=== PATIENT | male | born 1940 | race Caucasian/White ===

== ENCOUNTER 2021-08-04 19:05 | Inpatient (IN) | payer MEDICARE ==
[~2021-08-04] VITALS: Ht 175.3 cm; Wt 92.1 kg
[2021-08-04] MEDS ORDERED: IV NORMAL SALINE 1000 ML BAG IV ONE (19:15)
[2021-08-04] MEDS ORDERED: FERR325T28 PO (19:19)
[2021-08-04] MEDS ORDERED: ALBU8.5H8 INH (19:19)
[2021-08-04] MEDS ORDERED: LIPA1CAP28 PO (19:19)
[2021-08-04] MEDS ORDERED: CHLO25TA2 PO (19:19)
[2021-08-04] MEDS ORDERED: ATOR20TA PO (19:19)
[2021-08-04] MEDS ORDERED: ALPR0.255 PO (19:19)
[2021-08-04] MEDS ORDERED: ZENPEP PO (19:19)
[2021-08-04] MEDS ORDERED: ALEN70TA80 PO (19:19)
[2021-08-04] MEDS ORDERED: FAMO-132 PO (19:19)
[2021-08-04] MEDS ORDERED: MULT-594 PO (19:19)
[2021-08-04] MEDS ORDERED: APIX5TAB PO (19:19)
[2021-08-04] MEDS ORDERED: CHOLECALCIFEROL 1,000 UNIT TABLET ONE (19:29)
--- NOTE | 2021-08-04 19:36 | NUR ---
Dr. Villafana at bedside, MSE in progress.
[2021-08-04 19:40] LABS: HEMATOCRIT 33.7 % (36.7-47.1); MEAN CORPUSCULAR HEMOGLOBIN 29.5 uug (23.8-33.4); MEAN CORPUSCULAR VOLUME 88.6 fL (73.0-96.2); PLATELET COUNT (AUTO) 151 K/uL (152-348)
[2021-08-04 19:44] LABS: CARBON DIOXIDE 30 mmol/L (21-32); CHLORIDE 98 mmol/L (98-107); CREATININE 1.1 mg/dL (0.6-1.3); GLUCOSE 200 mg/dL (74-106); POTASSIUM 4.1 mmol/L (3.5-5.1); UREA NITROGEN, BLOOD 29 mg/dL (7-18)
[2021-08-04 19:56] LABS: ALANINE AMINOTRANSFERASE 21 U/L (16-63); ALKALINE PHOSPHATASE 59 U/L (50-136); ASPARTATE AMINOTRANSFERASE 24 U/L (15-37); BILIRUBIN,DIRECT 0.4 mg/dL (0.0-0.2); BILIRUBIN,TOTAL 1.4 mg/dL (0.2-1.0); TOTAL PROTEIN, SERUM 5.7 g/dL (6.4-8.2)
[2021-08-04] MEDS: CHOLECALCIFEROL 1,000 UNIT TABLET PO SCH (19:58)
[2021-08-04] MEDS ORDERED: CEFAZOLIN 1 G in IV DEXTROSE 5% 50 ML IV ONE (20:15)
[2021-08-04] MEDS ORDERED: NITROGLYCERIN OINT 1 GM PACKET TP ONE ×2 (20:15→20:23)
[2021-08-04] MEDS ORDERED: ASPIRIN 81 MG TAB.CHEW PO ONE (20:15)
[2021-08-04] MEDS ORDERED: ASPIRIN 81 MG TAB.CHEW ONE (20:23)
[2021-08-04] MEDS ORDERED: CEFAZOLIN 1 G VIAL ONE (20:23)
--- NOTE | 2021-08-04 21:16 | NUR ---
Ultrasound at bedside.
--- NOTE | 2021-08-04 22:18 | NUR ---
Called made to [facility] for panel call.
[2021-08-04] MEDS ORDERED: ACETAMINOPHEN 325 MG TABLET PO PRN (22:30)
[2021-08-04] MEDS ORDERED: ONDANSETRON 4 MG/2 ML VIAL IV PRN (22:30)
[2021-08-04] MEDS ORDERED: INSULIN REGULAR, HUMAN 300 UNIT/3 ML VIAL SQ PRN (22:30)
[2021-08-04] MEDS ORDERED: DEXTROSE 50% 50 ML DISP.SYRIN IV PRN (22:30)
[2021-08-04] MEDS ORDERED: MORPHINE SULFATE 2 MG/1 ML DISP.SYRIN IV PRN (22:30)
--- NOTE | 2021-08-04 22:59 | NUR ---
Report given to Ivonne VU
--- NOTE | 2021-08-04 23:43 | NUR ---
pt taken to room 316 via [place] with all belongings.
[2021-08-04] MEDS ORDERED: VANCOMYCIN IV 1,500 MG in IV DEXTROSE 5% 500 ML IV ONE (23:45)
[2021-08-04] MEDS ORDERED: TEMAZEPAM 7.5 MG CAPSULE PO PRN (23:45)
[2021-08-04] MEDS ORDERED: ENOXAPARIN SODIUM 100 MG/ML DISP.SYRIN SQ ONE (23:45)
--- NOTE | 2021-08-04 23:50 | NUR ---
RECEIVED PATIENT FROM ER DX:SEPSIS ,CHF,ACS AND RIGHT LOWER LEG CELLULITIS AND REDNESS.ADMITTING MD DOCTOR JUAN LUIS. AAOX3 ,PATIENT ABLE TO ANSWER SIMPLE QUESTIONS ,HE SAID HE CALLED 911 C/O LOWER EXT,WEAKNESS ,AT HOME HE WALKS WITH WALKER AND HE LIVES ALONE .ADMISSION HISTORY OBTAINED VIA PATIENT AND VIA CHART POOR HISTORIAN AND SEEMS VERY SLEEPY.NO RESPIRATORY DISTRESS NOTED 02 O2 NASAL CANNULA AT 2 LITER /MIN . INCONTINENT OF B AND B,HAD LARGE BM SOFT BROWNISH IN COLOR ,URINATED .CHANGED SOILED LINENS AND GOWN . PHOTO TAKEN ON PATIENT DIFFERENT SKIN ISSUES , SEE CHART CONSULTED WOUND CARE .
[2021-08-05 00:44] VITALS: BP 124/66
[2021-08-05] MEDS ORDERED: VANCOMYCIN 1000 MG VIAL ONE (00:52)
[2021-08-05] MEDS ORDERED: VANCOMYCIN HCL 500 MG VIAL ONE (00:52)
[2021-08-05] MEDS: ATORVASTATIN 20 MG TABLET PO SCH ×2 (01:44→20:49)
[2021-08-05] MEDS ORDERED: ENOXAPARIN SODIUM 30 MG/0.3 ML DISP.SYRIN SUBCUT SCH (01:45)
[2021-08-05] MEDS ORDERED: ENOXAPARIN SODIUM 60 MG/0.6 ML DISP.SYRIN SQ SCH (01:45)
--- NOTE | 2021-08-05 02:00 | NUR ---
turned and reposition patient .no c/p no sob noted .elevated right lower leg with pillow right leg swollen and very red( cellulitis) right foot +2 to 3 edema .
[2021-08-05] MEDS ORDERED: REMEDY ESSENTIAL ZINC PASTE 113 GM TOP PRN (02:45)
[2021-08-05] MEDS ORDERED: PIPERACILLIN SODIUM/TAZO 3.375 GM VIAL ONE (02:58)
[2021-08-05 04:50] VITALS: BP 128/72
[2021-08-05] MEDS ORDERED: PIPERACILLIN SODIUM/TAZOBACTAM 3.375 G in IV DEXTROSE 5% 50 ML IV SCH (06:00)
--- NOTE | 2021-08-05 06:00 | NUR ---
patient belongings inventory done with wallet .patient agrees to but his wallet to the safe .
[2021-08-05 06:16] LABS: HEMATOCRIT 31.3 % (36.7-47.1); MEAN CORPUSCULAR HEMOGLOBIN 29.7 uug (23.8-33.4); MEAN CORPUSCULAR VOLUME 88.2 fL (73.0-96.2); PLATELET COUNT (AUTO) 131 K/uL (152-348)
[2021-08-05] MEDS: BLOOD SUGAR DIAGNOSTIC 1 EACH STRIP VI SCH ×5 (06:16→20:49)
[2021-08-05 06:25] LABS: BILIRUBIN,TOTAL 1.2 mg/dL (0.2-1.0); MAGNESIUM 2.2 mg/dL (1.8-2.4); PHOSPHOROUS 3.4 mg/dL (2.5-4.9); POTASSIUM 3.9 mmol/L (3.5-5.1); TOTAL PROTEIN, SERUM 5.2 g/dL (6.4-8.2)
[2021-08-05 06:35] LABS: THYROID STIMULATING HORMONE 0.39 mIU/mL (0.358-3.740)
--- NOTE | 2021-08-05 08:00 | NUR ---
Discussed plan with pt not to drink too much water secondary to pt having edema +2 on LE's. Pt agreeable with plan. Redness on RIGHT left noted. LEFT UPPER ARM IV intact and flushing well with minimal resistance. PT is in no acute distress. Call light is within Reach.
[2021-08-05] MEDS: MULTIVITAMINS,THERAPEUTIC TABLET PO SCH (08:26)
[2021-08-05] MEDS: CHOLECALCIFEROL 1,000 UNIT TABLET PO SCH (08:26)
[2021-08-05] MEDS: REMEDY ESSENTIAL ZINC PASTE 113 GM TOP SCH ×2 (08:27→20:50)
[2021-08-05] MEDS: PANTOPRAZOLE SODIUM 40 MG TABLET.DR PO SCH (08:30)
[2021-08-05] MEDS ORDERED: FUROSEMIDE 20 MG/2 ML VIAL IV SCH (09:00)
[2021-08-05] MEDS: APIXABAN 5 MG TABLET PO SCH ×2 (10:26→20:48)
[2021-08-05] MEDS ORDERED: ENOXAPARIN SODIUM 100 MG/ML DISP.SYRIN SQ SCH (11:30)
[2021-08-05 12:07] VITALS: BP 111/65
[2021-08-05] MEDS: DIPHENOXYLATE HCL/ATROP SULF TABLET PO PRN (12:56)
[2021-08-05] MEDS: PIPERACILLIN SODIUM/TAZOBACTAM 3.375 G in IV DEXTROSE 5% 50 ML IV SCH ×2 (13:03→22:51)
[2021-08-05 16:03] VITALS: BP 122/68
[2021-08-05] MEDS: VANCOMYCIN IV 1,500 MG in IV DEXTROSE 5% 500 ML IV SCH (17:35)
--- NOTE | 2021-08-05 18:00 | NUR ---
Pt is in no acute distress. DR flores saw pt. Per pharmacy no vanco trough needed and ok to give dose. Call light is within reach.
[2021-08-05 20:24] VITALS: BP 132/88
[2021-08-05] MEDS: DOCUSATE SODIUM 100 MG CAPSULE PO SCH (20:47)
[2021-08-06 00:11] VITALS: BP 132/84
[2021-08-06 04:31] VITALS: BP 144/79
[2021-08-06] MEDS: PIPERACILLIN SODIUM/TAZOBACTAM 3.375 G in IV DEXTROSE 5% 50 ML IV SCH ×2 (05:30→14:27)
[2021-08-06] MEDS: PANTOPRAZOLE SODIUM 40 MG TABLET.DR PO SCH (06:25)
[2021-08-06] MEDS: BLOOD SUGAR DIAGNOSTIC 1 EACH STRIP VI SCH (06:32)
--- NOTE | 2021-08-06 08:00 | NUR ---
Applied z guard on groin area redness. Right leg redness about the same from yesterday. Edema noted +2 on right leg meme heels floated and meme legs elevated. IV site on left hand intact and flushing with minimal resistance. Discussed with pt not to drink too much water. Pt agreeable with plan. Call light is within reach.
[2021-08-06] MEDS: CHOLECALCIFEROL 1,000 UNIT TABLET PO SCH (09:03)
[2021-08-06] MEDS: DIPHENOXYLATE HCL/ATROP SULF TABLET PO PRN (09:03)
[2021-08-06] MEDS: MULTIVITAMINS,THERAPEUTIC TABLET PO SCH (09:03)
[2021-08-06] MEDS: REMEDY ESSENTIAL ZINC PASTE 113 GM TOP SCH ×2 (09:06→20:24)
[2021-08-06] MEDS: APIXABAN 5 MG TABLET PO SCH ×2 (09:06→20:24)
[2021-08-06] MEDS: ALBUTEROL SULFATE 2.5 MG/3 ML NEBU NEB PRN ×2 (09:29→17:41)
[2021-08-06 09:34] LABS: CREATININE 1.1 mg/dL (0.6-1.3); HEMATOCRIT 35.1 % (36.7-47.1); MEAN CORPUSCULAR HEMOGLOBIN 29.9 uug (23.8-33.4); MEAN CORPUSCULAR VOLUME 88.8 fL (73.0-96.2); PLATELET COUNT (AUTO) 160 K/uL (152-348); POTASSIUM 3.5 mmol/L (3.5-5.1)
[2021-08-06 11:47] VITALS: BP 123/74
--- NOTE | 2021-08-06 12:00 | NUR ---
Pt was not able to tolerate physical therapy. Pt was able to participate partially with PT. o2 @ 2 liters with sat of 96%.
[2021-08-06] MEDS: VANCOMYCIN IV 1,500 MG in IV DEXTROSE 5% 500 ML IV SCH (12:02)
[2021-08-06] MEDS: SOD FERRIC GLUC COMPLX/SUCROSE 125 MG in IV NORMAL SALINE 100 ML IV SCH (14:27)
[2021-08-06 16:37] VITALS: BP 140/81
--- NOTE | 2021-08-06 18:39 | NUR ---
pt stated "that breathing treatment helped me alot today." Pt received x 2 hhn tx as ordered for sob effective. Dr flores here to see patient.
[2021-08-06 20:00] VITALS: BP 124/76
[2021-08-06] MEDS: DOCUSATE SODIUM 100 MG CAPSULE PO SCH (20:22)
[2021-08-06] MEDS: ATORVASTATIN 20 MG TABLET PO SCH (20:23)
[2021-08-06] MEDS ORDERED: CEFTRIAXONE 1 G in IV DEXTROSE 5% 50 ML IV SCH (21:30)
[2021-08-06] MEDS ORDERED: CEFTRIAXONE /D5W 50ML IVPB **ER PYXIS IV ONE (22:07)
[2021-08-07 00:51] VITALS: BP 135/63
[2021-08-07 04:31] VITALS: BP 147/89
--- NOTE | 2021-08-07 04:46 | NUR ---
Patient resting well in between care; no acute distress; repositioned for comfort; seen BY Lorena ALTAMIRANO and davida schmidt and ordered Rocephin; Pt tolerated Rocephin; continue to monitor; continue plan of care.
[2021-08-07] MEDS: VANCOMYCIN IV 1,500 MG in IV DEXTROSE 5% 500 ML IV SCH (05:09)
[2021-08-07 05:27] LABS: HEMATOCRIT 32.8 % (36.7-47.1); MEAN CORPUSCULAR VOLUME 87.6 fL (73.0-96.2); PLATELET COUNT (AUTO) 161 K/uL (152-348)
[2021-08-07 05:41] LABS: BILIRUBIN,TOTAL 0.9 mg/dL (0.2-1.0); CREATININE 0.9 mg/dL (0.6-1.3); MAGNESIUM 1.7 mg/dL (1.8-2.4); PHOSPHOROUS 4.1 mg/dL (2.5-4.9); POTASSIUM 3.6 mmol/L (3.5-5.1); TOTAL PROTEIN, SERUM 5.2 g/dL (6.4-8.2)
[2021-08-07] MEDS: PANTOPRAZOLE SODIUM 40 MG TABLET.DR PO SCH (06:13)
--- NOTE | 2021-08-07 07:50 | NUR ---
received sleeping easily arouses to verbal and tactile stimuli. on 2 lpm. no ss of sob or pain. redness on rle still noted. ble elevated per comfort. iv intact no ss of infiltration or phlebitis. appears comfortable. call light within reach. cont to monitor.
[2021-08-07] MEDS: MULTIVITAMINS,THERAPEUTIC TABLET PO SCH (08:31)
[2021-08-07] MEDS: REMEDY ESSENTIAL ZINC PASTE 113 GM TOP SCH (08:31)
[2021-08-07] MEDS: CHOLECALCIFEROL 1,000 UNIT TABLET PO SCH (08:31)
[2021-08-07] MEDS: DIPHENOXYLATE HCL/ATROP SULF TABLET PO PRN (08:34)
[2021-08-07] MEDS: ALBUTEROL SULFATE 2.5 MG/3 ML NEBU NEB PRN (08:36)
[2021-08-07] MEDS: APIXABAN 5 MG TABLET PO SCH (08:42)
--- NOTE | 2021-08-07 08:44 | NUR ---
rt giving breathing tx. satting 98% on 2lpm nc. no sob.
[2021-08-07] MEDS ORDERED: METOPROLOL SUCCINATE XL 25 MG TAB.SR.24H PO SCH (09:00)
[2021-08-07] MEDS ORDERED: MAGNESIUM OXIDE 400 MG TABLET PO ONE (09:30)
--- NOTE | 2021-08-07 11:29 | NUR ---
WOUND CARE CONSULT: PT PRESENTS WITH BLANCHABLE REDNESS TO SACRUM/BUTTOCKS AREA AND VERY RED, SWOLLEN RT LOWER LEG, PRESENT ON ADMISSION. DR BELL NOTIFIED OF DPM CONSULT REQUEST. RECOMMENDATIONS MADE FOR SKIN PROTECTION. DISCUSSED WITH NURSING STAFF. MD IN AGREEMENT WITH PLAN OF CARE.
[2021-08-07] MEDS ORDERED: VANC1.5V IV (11:30)
[2021-08-07] MEDS ORDERED: CHOL100062 PO (11:30)
[2021-08-07] MEDS ORDERED: CEFT1FRO2 IV (11:30)
[2021-08-07] MEDS ORDERED: PANT40TA49 PO (11:30)
[2021-08-07] MEDS ORDERED: DOCU-141 PO (11:30)
[2021-08-07] MEDS ORDERED: ALBU2.5V7 NEB (11:30)
[2021-08-07] MEDS ORDERED: APIX5TAB PO (11:30)
[2021-08-07] MEDS ORDERED: METO-356 PO (11:30)
[2021-08-07] MEDS ORDERED: ACET325T53 PO (11:30)
[2021-08-07 12:00] VITALS: BP 126/67
[2021-08-07] MEDS: SOD FERRIC GLUC COMPLX/SUCROSE 125 MG in IV NORMAL SALINE 100 ML IV SCH (14:23)
[2021-08-07 16:29] VITALS: BP 111/59
--- NOTE | 2021-08-07 17:59 | NUR ---
discharge to [facility] and pt is agreeable with plan. no ss of pain or sob noted.
== END 2021-08-07 18:05 | DRG 871 ==
LOC: ER 19:08 → TELE3 23:13
PROVIDERS: ADMIT Internal Medicine; ATTEND Nurse Practitioner Acute Care
DX: A41.9 Sepsis, unspecified organism (principal); I21.A1 Myocardial infarction type 2; I50.31 Acute diastolic (congestive) heart failure; L03.115 Cellulitis of right lower limb; I47.1 Supraventricular tachycardia; J96.11 Chronic respiratory failure with hypoxia; L97.819 Non-pressure chronic ulcer of other part of right lower leg with unspecified severity; I87.311 Chronic venous hypertension (idiopathic) with ulcer of right lower extremity; D50.9 Iron deficiency anemia, unspecified; E66.9 Obesity, unspecified; E78.5 Hyperlipidemia, unspecified; I11.0 Hypertensive heart disease with heart failure; I48.0 Paroxysmal atrial fibrillation; Z87.01 Personal history of pneumonia (recurrent); Z79.01 Long term (current) use of anticoagulants; Z95.1 Presence of aortocoronary bypass graft; I25.10 Atherosclerotic heart disease of native coronary artery without angina pectoris; R53.1 Weakness; Z68.30 Body mass index [BMI] 30.0-30.9, adult; Z99.81 Dependence on supplemental oxygen; R73.03 Prediabetes; I95.9 Hypotension, unspecified; Z98.890 Other specified postprocedural states; M79.661 Pain in right lower leg; Z20.822 Contact with and (suspected) exposure to COVID-19
CPT/HCPCS: 36415; 71045; 82378; 83550; 83605; 83735; 84100; 84443; 84484; 85025; 85730; 87040; 93005; 93307; 94640; 94664; 97161; A4663; G0378; J0690; J0696; J1650; J1815; J1940; J2543; J2916; J3370; J7040; J7050; J7060

== ENCOUNTER 2021-08-07 18:46 | Inpatient (IN) | payer MEDICARE ==
[~2021-08-07] VITALS: Ht 175.3 cm; Wt 92.1 kg
[~2021-08-07 18:46] MED LIST: ACET325T53 PO; ALBU2.5V7 NEB; ALBU8.5H8 INH; ALEN70TA80 PO; ALPR0.255 PO; APIX5TAB PO; ATOR20TA PO; CEFT1FRO2 IV; CHLO25TA2 PO; CHOL100062 PO; DOCU-141 PO; FAMO-132 PO; FERR325T28 PO; LIPA1CAP28 PO; METO-356 PO; MULT-594 PO; PANT40TA49 PO; VANC1.5V IV; ZENPEP PO
[2021-08-07] MEDS ORDERED: ACETAMINOPHEN 325 MG TABLET-SA PATIENTS-PAIN ONLY PO PRN (20:30)
[2021-08-07] MEDS ORDERED: ALBUTEROL SULFATE 8 GM HFA.AER.AD INH PRN (20:30)
[2021-08-07] MEDS ORDERED: ALBUTEROL SULFATE 2.5 MG/3 ML NEBU NEB PRN (20:30)
[2021-08-07] MEDS: DOCUSATE SODIUM 100 MG CAPSULE PO SCH ×2 (21:00→21:05)
[2021-08-07 21:03] VITALS: BP 124/76
[2021-08-07] MEDS: CEFTRIAXONE 1 G in IV DEXTROSE 5% 50 ML IV SCH (21:05)
[2021-08-07] MEDS: ATORVASTATIN 20 MG TABLET PO SCH (21:05)
[2021-08-07] MEDS: REMEDY ESSENTIAL ZINC PASTE 113 GM TOP SCH (21:05)
[2021-08-08] MEDS ORDERED: VANCOMYCIN HCL 500 MG VIAL ONE ×2 (00:56→00:59)
[2021-08-08] MEDS ORDERED: VANCOMYCIN 1000 MG VIAL ONE (00:58)
[2021-08-08] MEDS ORDERED: VANCOMYCIN IV 1,500 MG in IV DEXTROSE 5% 500 ML IV ONE (01:00)
[2021-08-08 04:00] VITALS: BP 120/67
--- NOTE | 2021-08-08 06:27 | NUR ---
Admitted patient at 1900H 08/07/21 start of the shift from Tele to Rehab. Dr. Will and Dr To made aware, acknowledged. Skin assessment done, noted with multiple discoloration to upper and lower extremities. Cellulitis to RLE noted, kept elevated. redness to the sacral area, photo taken in chart. Heplock G22 on the left hand, patent. On continuous 02 at 2L nc, not in distress. IV atb given during the shift as ordered. Oriented the patient, care plan initiated. MRSA obtained as ordered and sent to the lab. will endorse to the next shift for continuity of care.
[2021-08-08] MEDS ORDERED: PANTOPRAZOLE SODIUM 40 MG TABLET.DR PO SCH (07:00)
[2021-08-08 07:30] VITALS: BP 122/74
[2021-08-08] MEDS: MULTIVITAMINS,THERAPEUTIC TABLET PO SCH (08:44)
[2021-08-08] MEDS: CHOLECALCIFEROL 1,000 UNIT TABLET PO SCH (08:44)
[2021-08-08] MEDS: CHLORTHALIDONE 25 MG TABLET PO SCH (08:44)
[2021-08-08] MEDS: LIPASE/PROTEASE/AMYLASE 4200 UNITS CAPSULE.DR PO SCH (08:44)
[2021-08-08] MEDS: FERROUS SULFATE 325 MG TABEC PO SCH (08:44)
[2021-08-08] MEDS: APIXABAN 5 MG TABLET PO SCH ×2 (08:45→16:45)
[2021-08-08] MEDS: REMEDY ESSENTIAL ZINC PASTE 113 GM TOP SCH ×2 (08:46→20:15)
[2021-08-08] MEDS: METOPROLOL SUCCINATE XL 25 MG TAB.SR.24H PO SCH (08:46)
[2021-08-08] MEDS ORDERED: Medication Not On Formulary EA (Multivitamins (Multivitamin) 1 EACH) PO SCH (09:00)
[2021-08-08] MEDS: DIPHENOXYLATE HCL/ATROP SULF TABLET PO PRN (09:35)
--- NOTE | 2021-08-08 10:41 | NUR ---
WOUND CARE CONSULT: PT FOLLOWED BY PODIATRY FOR RT LOWER LEG. DR BELL NOTIFIED OF ADMISSION TO REHAB UNIT. DISCUSSED SKIN PROTECTION WITH NURSING STAFF. MD IN AGREEMENT WITH PLAN OF CARE.
[2021-08-08] MEDS ORDERED: HYDROCODONE/APAP 5-325MG TABLET PO PRN (13:15)
--- NOTE | 2021-08-08 13:36 | NUR ---
INTERDISCIPLINARY TEAM CONFERENCE
[2021-08-08 16:00] VITALS: BP 114/74
[2021-08-08] MEDS: VANCOMYCIN IV 1,500 MG in IV DEXTROSE 5% 500 ML IV SCH (18:55)
[2021-08-08 20:00] VITALS: BP 135/70
[2021-08-08] MEDS: CEFTRIAXONE 1 G in IV DEXTROSE 5% 50 ML IV SCH ×2 (20:15→22:30)
[2021-08-08] MEDS: DOCUSATE SODIUM 100 MG CAPSULE PO SCH (20:15)
[2021-08-08] MEDS: ACIDOPHILUS/BULGARICUS CHEW TAB PO SCH (20:15)
[2021-08-08] MEDS: ATORVASTATIN 20 MG TABLET PO SCH (20:15)
[2021-08-08] MEDS: ALPRAZOLAM 0.5 MG TABLET PO PRN (22:35)
[2021-08-09 04:38] VITALS: BP 126/66
[2021-08-09] MEDS: DIPHENOXYLATE HCL/ATROP SULF TABLET PO PRN (06:08)
[2021-08-09 07:34] VITALS: BP 126/87
[2021-08-09] MEDS: LIPASE/PROTEASE/AMYLASE 4200 UNITS CAPSULE.DR PO SCH (08:40)
[2021-08-09] MEDS: FERROUS SULFATE 325 MG TABEC PO SCH (08:40)
[2021-08-09] MEDS: CHLORTHALIDONE 25 MG TABLET PO SCH (08:40)
[2021-08-09] MEDS: ACIDOPHILUS/BULGARICUS CHEW TAB PO SCH ×2 (08:40→20:44)
[2021-08-09] MEDS: FAMOTIDINE 20 MG TABLET PO SCH (08:41)
[2021-08-09] MEDS: METOPROLOL SUCCINATE XL 25 MG TAB.SR.24H PO SCH (08:41)
[2021-08-09] MEDS: CHOLECALCIFEROL 1,000 UNIT TABLET PO SCH (08:41)
[2021-08-09] MEDS: MULTIVITAMINS,THERAPEUTIC TABLET PO SCH (08:41)
[2021-08-09] MEDS: REMEDY ESSENTIAL ZINC PASTE 113 GM TOP SCH ×2 (08:42→20:45)
[2021-08-09] MEDS: APIXABAN 5 MG TABLET PO SCH ×2 (08:43→17:14)
[2021-08-09 11:36] VITALS: BP 121/64
[2021-08-09] MEDS: CEFTRIAXONE 1 G in IV DEXTROSE 5% 50 ML IV SCH ×3 (13:21→19:54)
[2021-08-09] MEDS: VANCOMYCIN IV 1,500 MG in IV DEXTROSE 5% 500 ML IV SCH (13:33)
[2021-08-09 16:00] VITALS: BP 116/72
--- NOTE | 2021-08-09 17:40 | NUR ---
Pt remain AAOX4 able to let his needs known noted with multiple skin discoloration to upper and lower extremities. Cellulitis to RLE noted, kept elevated. redness to the sacral . Heplock G22 on the left hand, got infiltrated re insertion of new IV site at RFA G# 22. On continuous 02 at 2L nc, not in distress. IV ATB given during the shift as ordered. will endorse to the next shift for continuity of care.
[2021-08-09 20:00] VITALS: BP 134/76
[2021-08-09] MEDS: ATORVASTATIN 20 MG TABLET PO SCH (20:44)
[2021-08-09] MEDS: DOCUSATE SODIUM 100 MG CAPSULE PO SCH ×2 (20:44→20:48)
[2021-08-09] MEDS: ALPRAZOLAM 0.5 MG TABLET PO PRN (20:44)
[2021-08-10 04:00] VITALS: BP 121/63
[2021-08-10] MEDS: VANCOMYCIN IV 1,500 MG in IV DEXTROSE 5% 500 ML IV SCH ×2 (05:24→23:45)
[2021-08-10] MEDS: DIPHENOXYLATE HCL/ATROP SULF TABLET PO PRN (06:37)
[2021-08-10 07:52] VITALS: BP 128/74
[2021-08-10] MEDS: CHOLECALCIFEROL 1,000 UNIT TABLET PO SCH (08:50)
[2021-08-10] MEDS: FERROUS SULFATE 325 MG TABEC PO SCH (08:50)
[2021-08-10] MEDS: CHLORTHALIDONE 25 MG TABLET PO SCH (08:50)
[2021-08-10] MEDS: MULTIVITAMINS,THERAPEUTIC TABLET PO SCH (08:51)
[2021-08-10] MEDS: METOPROLOL SUCCINATE XL 25 MG TAB.SR.24H PO SCH (08:51)
[2021-08-10] MEDS: LIPASE/PROTEASE/AMYLASE 4200 UNITS CAPSULE.DR PO SCH (08:51)
[2021-08-10] MEDS: ACIDOPHILUS/BULGARICUS CHEW TAB PO SCH ×2 (08:51→20:45)
[2021-08-10] MEDS: REMEDY ESSENTIAL ZINC PASTE 113 GM TOP SCH ×2 (08:51→20:46)
[2021-08-10] MEDS: APIXABAN 5 MG TABLET PO SCH ×2 (08:53→17:12)
[2021-08-10] MEDS: FAMOTIDINE 20 MG TABLET PO SCH (08:56)
[2021-08-10 12:25] LABS: HEMATOCRIT 36.7 % (36.7-47.1); MEAN CORPUSCULAR HEMOGLOBIN 29.5 uug (23.8-33.4); MEAN CORPUSCULAR VOLUME 89.2 fL (73.0-96.2); PLATELET COUNT (AUTO) 288 K/uL (152-348)
[2021-08-10 12:34] LABS: POTASSIUM 3.6 mmol/L (3.5-5.1)
--- NOTE | 2021-08-10 14:06 | NUR ---
INDIVIDUALIZED PLAN OF CARE
[2021-08-10 16:19] VITALS: BP 125/69
[2021-08-10 20:42] VITALS: BP 110/53
[2021-08-10] MEDS: CEFTRIAXONE 1 G in IV DEXTROSE 5% 50 ML IV SCH (20:44)
[2021-08-10] MEDS: ATORVASTATIN 20 MG TABLET PO SCH (20:45)
[2021-08-10] MEDS: DOCUSATE SODIUM 100 MG CAPSULE PO SCH (20:45)
--- NOTE | 2021-08-11 03:49 | NUR ---
Pt Slept throughout the night.Respirations even and unlabored o2 at 2 liter via N/C. No distress noted. Able to make needs known . Denies pain. IV site site intact remain on ATB for R leg Cellulitis. Safety measures maintained. Will continue to monitor for Comfort and safety
[2021-08-11 04:52] VITALS: BP 136/67
[2021-08-11] MEDS: ALENDRONATE SODIUM 70 MG TABLET PO SCH (06:45)
[2021-08-11] MEDS: DIPHENOXYLATE HCL/ATROP SULF TABLET PO PRN (06:45)
[2021-08-11 07:30] VITALS: BP 122/67
[2021-08-11] MEDS: FERROUS SULFATE 325 MG TABEC PO SCH (09:01)
[2021-08-11] MEDS: CHOLECALCIFEROL 1,000 UNIT TABLET PO SCH (09:01)
[2021-08-11] MEDS: ACIDOPHILUS/BULGARICUS CHEW TAB PO SCH ×2 (09:01→20:27)
[2021-08-11] MEDS: APIXABAN 5 MG TABLET PO SCH ×2 (09:02→17:42)
[2021-08-11] MEDS: FAMOTIDINE 20 MG TABLET PO SCH (09:03)
[2021-08-11] MEDS: ENSURE ENLIVE (VAN) 240 ML LIQUID PO SCH (09:07)
[2021-08-11] MEDS: REMEDY ESSENTIAL ZINC PASTE 113 GM TOP SCH ×2 (09:08→21:57)
[2021-08-11] MEDS: METOPROLOL SUCCINATE XL 25 MG TAB.SR.24H PO SCH (09:25)
[2021-08-11] MEDS: MULTIVITAMINS,THERAPEUTIC TABLET PO SCH (09:25)
[2021-08-11] MEDS: CHLORTHALIDONE 25 MG TABLET PO SCH (09:43)
[2021-08-11] MEDS: LIPASE/PROTEASE/AMYLASE 4200 UNITS CAPSULE.DR PO SCH (09:43)
[2021-08-11 15:01] VITALS: BP 132/78
[2021-08-11] MEDS: VANCOMYCIN IV 1,500 MG in IV DEXTROSE 5% 500 ML IV SCH (17:43)
--- NOTE | 2021-08-11 19:30 | NUR ---
Received pt awake, alert and orientedx3. Pt in no acute distress. Iv intact. Pt on 2L nasal cannula. Safety and comfort provided. Will continue to monitor.
[2021-08-11] MEDS: ALPRAZOLAM 0.5 MG TABLET PO PRN (20:27)
[2021-08-11] MEDS: ATORVASTATIN 20 MG TABLET PO SCH (20:27)
[2021-08-11] MEDS: DOCUSATE SODIUM 100 MG CAPSULE PO SCH (20:29)
[2021-08-11] MEDS: CEFTRIAXONE 1 G in IV DEXTROSE 5% 50 ML IV SCH (20:29)
[2021-08-11 20:31] VITALS: BP 132/62
--- NOTE | 2021-08-11 22:00 | NUR ---
Administered Xanax 5mg at . pPt i
--- NOTE | 2021-08-11 22:01 | NUR ---
Administered Xanax 5mg at . After an hour pt more calmer. Medication effective.
--- NOTE | 2021-08-11 22:03 | NUR ---
Pt observed coughing. Told pt if he wants any cough medication I will ask the doctor for him. Pt doesn't want any cough medication.
--- NOTE | 2021-08-12 06:21 | NUR ---
Pt on 2l nasal cannula at 100%. Pt in no acute distress. Will continue to monitor.
--- NOTE | 2021-08-12 06:22 | NUR ---
Pt slept intermittently. Pt in no acute distress. Iv intact. Safety and comfort provided. Will endorse to incoming nurse for continuity of care.
[2021-08-12 08:00] VITALS: BP 121/58
[2021-08-12] MEDS: LIPASE/PROTEASE/AMYLASE 4200 UNITS CAPSULE.DR PO SCH (08:34)
[2021-08-12] MEDS: CHOLECALCIFEROL 1,000 UNIT TABLET PO SCH (08:34)
[2021-08-12] MEDS: CHLORTHALIDONE 25 MG TABLET PO SCH (08:34)
[2021-08-12] MEDS: FAMOTIDINE 20 MG TABLET PO SCH (08:34)
[2021-08-12] MEDS: ACIDOPHILUS/BULGARICUS CHEW TAB PO SCH ×2 (08:34→20:29)
[2021-08-12] MEDS: FERROUS SULFATE 325 MG TABEC PO SCH (08:35)
[2021-08-12] MEDS: MULTIVITAMINS,THERAPEUTIC TABLET PO SCH (08:36)
[2021-08-12] MEDS: METOPROLOL SUCCINATE XL 25 MG TAB.SR.24H PO SCH (08:36)
[2021-08-12] MEDS: APIXABAN 5 MG TABLET PO SCH ×2 (08:39→16:25)
[2021-08-12] MEDS: REMEDY ESSENTIAL ZINC PASTE 113 GM TOP SCH ×2 (08:42→20:29)
[2021-08-12] MEDS: ENSURE ENLIVE (VAN) 240 ML LIQUID PO SCH (08:43)
[2021-08-12] MEDS: DIPHENOXYLATE HCL/ATROP SULF TABLET PO PRN (08:48)
[2021-08-12 12:07] LABS: POTASSIUM 3.6 mmol/L (3.5-5.1)
[2021-08-12] MEDS: VANCOMYCIN IV 1,500 MG in IV DEXTROSE 5% 500 ML IV SCH (12:18)
[2021-08-12 16:00] VITALS: BP 108/64
--- NOTE | 2021-08-12 17:05 | NUR ---
Med. Surg: Nursing Notes: Patient is awake and responding to his name, cooperative with nursing care, assisted with ADL's, compliant with his medications, cooperative with physical therapist, up on w/c and ambulated few steps with PT, O2 at 2L/min. via NC, right Lower extremity cellulitis improving, A/Ox4, Right FA - IV site - 22G, keeping Right leg elevated when patient is laying down, continue to monitor for safety, continue with treatment plan.
[2021-08-12] MEDS: ATORVASTATIN 20 MG TABLET PO SCH (20:29)
[2021-08-12] MEDS: DOCUSATE SODIUM 100 MG CAPSULE PO SCH (20:29)
[2021-08-12] MEDS: DOXYCYCLINE HYCLATE 100 MG TABLET PO SCH (20:31)
[2021-08-12] MEDS: ALPRAZOLAM 0.5 MG TABLET PO PRN (20:36)
[2021-08-12 20:40] VITALS: BP 144/78
[2021-08-13 04:26] VITALS: BP 126/69
[2021-08-13] MEDS: DIPHENOXYLATE HCL/ATROP SULF TABLET PO PRN (06:29)
[2021-08-13 07:44] VITALS: BP 131/79
[2021-08-13] MEDS: FERROUS SULFATE 325 MG TABEC PO SCH (08:10)
[2021-08-13] MEDS: FAMOTIDINE 20 MG TABLET PO SCH (08:10)
[2021-08-13] MEDS: MULTIVITAMINS,THERAPEUTIC TABLET PO SCH (08:10)
[2021-08-13] MEDS: DOXYCYCLINE HYCLATE 100 MG TABLET PO SCH ×2 (08:10→20:07)
[2021-08-13] MEDS: CHOLECALCIFEROL 1,000 UNIT TABLET PO SCH (08:10)
[2021-08-13] MEDS: ACIDOPHILUS/BULGARICUS CHEW TAB PO SCH ×2 (08:10→20:07)
[2021-08-13] MEDS: METOPROLOL SUCCINATE XL 25 MG TAB.SR.24H PO SCH (08:11)
[2021-08-13] MEDS: ENSURE ENLIVE (VAN) 240 ML LIQUID PO SCH (08:17)
[2021-08-13] MEDS: REMEDY ESSENTIAL ZINC PASTE 113 GM TOP SCH ×2 (08:17→20:09)
[2021-08-13] MEDS: APIXABAN 5 MG TABLET PO SCH ×2 (08:17→16:04)
[2021-08-13] MEDS: CHLORTHALIDONE 25 MG TABLET PO SCH (08:23)
[2021-08-13] MEDS: LIPASE/PROTEASE/AMYLASE 4200 UNITS CAPSULE.DR PO SCH (08:23)
[2021-08-13 16:00] VITALS: BP 131/70
[2021-08-13] MEDS: ATORVASTATIN 20 MG TABLET PO SCH (20:07)
[2021-08-13] MEDS: DOCUSATE SODIUM 100 MG CAPSULE PO SCH (20:07)
[2021-08-13 20:28] VITALS: BP 145/82
[2021-08-14 04:00] VITALS: BP 132/76
[2021-08-14] MEDS: DIPHENOXYLATE HCL/ATROP SULF TABLET PO PRN (07:47)
[2021-08-14] MEDS: CHOLECALCIFEROL 1,000 UNIT TABLET PO SCH (08:02)
[2021-08-14] MEDS: FAMOTIDINE 20 MG TABLET PO SCH (08:02)
[2021-08-14] MEDS: DOXYCYCLINE HYCLATE 100 MG TABLET PO SCH ×2 (08:03→20:39)
[2021-08-14] MEDS: MULTIVITAMINS,THERAPEUTIC TABLET PO SCH (08:03)
[2021-08-14] MEDS: METOPROLOL SUCCINATE XL 25 MG TAB.SR.24H PO SCH (08:03)
[2021-08-14] MEDS: ACIDOPHILUS/BULGARICUS CHEW TAB PO SCH ×2 (08:03→20:39)
[2021-08-14] MEDS: LIPASE/PROTEASE/AMYLASE 4200 UNITS CAPSULE.DR PO SCH (08:04)
[2021-08-14] MEDS: FERROUS SULFATE 325 MG TABEC PO SCH (08:04)
[2021-08-14] MEDS: CHLORTHALIDONE 25 MG TABLET PO SCH (08:04)
[2021-08-14 08:05] VITALS: BP 136/77
[2021-08-14] MEDS: ENSURE ENLIVE (VAN) 240 ML LIQUID PO SCH (08:05)
[2021-08-14] MEDS: REMEDY ESSENTIAL ZINC PASTE 113 GM TOP SCH ×2 (08:19→20:40)
[2021-08-14] MEDS: APIXABAN 5 MG TABLET PO SCH ×2 (08:28→16:44)
--- NOTE | 2021-08-14 11:17 | NUR ---
patient requested lomotil to be scheduled every morning, per his gastroentorogist, approved with dr flores and order noted.
--- NOTE | 2021-08-14 11:20 | NUR ---
right lower ext is still noted with mild erythema,and pitting edema, however the erythema is much better than before. viki wrap as ordered for edema.
[2021-08-14 16:56] VITALS: BP 151/83
[2021-08-14 20:09] VITALS: BP 108/49
[2021-08-14] MEDS: DOCUSATE SODIUM 100 MG CAPSULE PO SCH (20:40)
[2021-08-14] MEDS: ATORVASTATIN 20 MG TABLET PO SCH (20:40)
[2021-08-14] MEDS: ALPRAZOLAM 0.5 MG TABLET PO PRN (20:44)
[2021-08-15 04:09] VITALS: BP 125/65
[2021-08-15] MEDS: DIPHENOXYLATE HCL/ATROP SULF TABLET PO SCH (06:25)
[2021-08-15 08:00] VITALS: BP 112/60
[2021-08-15] MEDS: DOXYCYCLINE HYCLATE 100 MG TABLET PO SCH ×2 (09:08→20:18)
[2021-08-15] MEDS: FERROUS SULFATE 325 MG TABEC PO SCH (09:08)
[2021-08-15] MEDS: MULTIVITAMINS,THERAPEUTIC TABLET PO SCH (09:08)
[2021-08-15] MEDS: CHOLECALCIFEROL 1,000 UNIT TABLET PO SCH (09:08)
[2021-08-15] MEDS: ACIDOPHILUS/BULGARICUS CHEW TAB PO SCH ×2 (09:09→20:18)
[2021-08-15] MEDS: FAMOTIDINE 20 MG TABLET PO SCH ×2 (09:09→21:03)
[2021-08-15] MEDS: LIPASE/PROTEASE/AMYLASE 4200 UNITS CAPSULE.DR PO SCH (09:09)
[2021-08-15] MEDS: APIXABAN 5 MG TABLET PO SCH ×2 (09:09→16:34)
[2021-08-15] MEDS: CHLORTHALIDONE 25 MG TABLET PO SCH (09:09)
[2021-08-15] MEDS: ENSURE ENLIVE (VAN) 240 ML LIQUID PO SCH (09:10)
[2021-08-15] MEDS: REMEDY ESSENTIAL ZINC PASTE 113 GM TOP SCH ×2 (09:10→20:18)
[2021-08-15] MEDS: METOPROLOL SUCCINATE XL 25 MG TAB.SR.24H PO SCH (09:23)
--- NOTE | 2021-08-15 11:46 | NUR ---
Informed Dr. Branham regarding patient's complain of postnasal drip causing him to cough and per MD he will put in some orders. Also notified MD about chest X-Ray result with no new order.
--- NOTE | 2021-08-15 14:14 | NUR ---
INTERDISCIPLINARY TEAM CONFERENCE
[2021-08-15 16:43] VITALS: BP 113/62
[2021-08-15] MEDS: DOCUSATE SODIUM 100 MG CAPSULE PO SCH (20:18)
[2021-08-15] MEDS: ATORVASTATIN 20 MG TABLET PO SCH (20:18)
[2021-08-15 20:23] VITALS: BP 121/63
[2021-08-15] MEDS: ALPRAZOLAM 0.5 MG TABLET PO PRN (20:30)
[2021-08-16 04:19] VITALS: BP 134/63
[2021-08-16] MEDS: DIPHENOXYLATE HCL/ATROP SULF TABLET PO SCH (05:51)
[2021-08-16 07:34] VITALS: BP 126/75
[2021-08-16] MEDS: ACIDOPHILUS/BULGARICUS CHEW TAB PO SCH ×2 (08:08→20:14)
[2021-08-16] MEDS: CHOLECALCIFEROL 1,000 UNIT TABLET PO SCH (08:08)
[2021-08-16] MEDS: FERROUS SULFATE 325 MG TABEC PO SCH (08:08)
[2021-08-16] MEDS: DOXYCYCLINE HYCLATE 100 MG TABLET PO SCH (08:08)
[2021-08-16] MEDS: METOPROLOL SUCCINATE XL 25 MG TAB.SR.24H PO SCH (08:09)
[2021-08-16] MEDS: MULTIVITAMINS,THERAPEUTIC TABLET PO SCH (08:09)
[2021-08-16] MEDS: LIPASE/PROTEASE/AMYLASE 4200 UNITS CAPSULE.DR PO SCH (08:09)
[2021-08-16] MEDS: CHLORTHALIDONE 25 MG TABLET PO SCH (08:09)
[2021-08-16] MEDS: FAMOTIDINE 20 MG TABLET PO SCH ×2 (08:09→20:14)
[2021-08-16] MEDS: FLUTICASONE PROP NASAL SPRAY 16 GM BOTTLE NS SCH (08:10)
[2021-08-16] MEDS: ENSURE ENLIVE (VAN) 240 ML LIQUID PO SCH (08:10)
[2021-08-16] MEDS: REMEDY ESSENTIAL ZINC PASTE 113 GM TOP SCH ×2 (08:11→20:25)
[2021-08-16] MEDS: APIXABAN 5 MG TABLET PO SCH ×2 (08:13→17:17)
[2021-08-16] MEDS: FUROSEMIDE 20 MG TABLET PO SCH (08:31)
[2021-08-16 15:02] VITALS: BP 121/70
[2021-08-16 15:37] VITALS: BP 109/61
--- NOTE | 2021-08-16 18:13 | NUR ---
no events noted during shift, no erythema noted to right leg, viki wrap reapplied, no edema note to right leg either.
[2021-08-16 20:09] VITALS: BP 129/63
[2021-08-16] MEDS: ATORVASTATIN 20 MG TABLET PO SCH (20:14)
[2021-08-16] MEDS: ALPRAZOLAM 0.5 MG TABLET PO PRN (20:20)
[2021-08-16] MEDS: DOCUSATE SODIUM 100 MG CAPSULE PO SCH (20:25)
[2021-08-17 04:12] VITALS: BP 125/59
[2021-08-17] MEDS: DIPHENOXYLATE HCL/ATROP SULF TABLET PO SCH (06:09)
--- NOTE | 2021-08-17 06:24 | NUR ---
No significant changes noted, slept intermittently throughout the night. Easily arousable for care, able to make needs known. Denies pain and discomfort. All needs attended. Call light placed within reach. Will endorse to next shift.
[2021-08-17 07:52] VITALS: BP 114/62
[2021-08-17] MEDS: ACIDOPHILUS/BULGARICUS CHEW TAB PO SCH ×2 (08:05→20:42)
[2021-08-17] MEDS: FUROSEMIDE 20 MG TABLET PO SCH (08:05)
[2021-08-17] MEDS: CHOLECALCIFEROL 1,000 UNIT TABLET PO SCH (08:06)
[2021-08-17] MEDS: FERROUS SULFATE 325 MG TABEC PO SCH (08:06)
[2021-08-17] MEDS: METOPROLOL SUCCINATE XL 25 MG TAB.SR.24H PO SCH (08:06)
[2021-08-17] MEDS: FAMOTIDINE 20 MG TABLET PO SCH ×2 (08:06→20:42)
[2021-08-17] MEDS: LIPASE/PROTEASE/AMYLASE 4200 UNITS CAPSULE.DR PO SCH (08:10)
[2021-08-17] MEDS: APIXABAN 5 MG TABLET PO SCH ×2 (08:10→16:31)
[2021-08-17] MEDS: CHLORTHALIDONE 25 MG TABLET PO SCH (08:10)
[2021-08-17] MEDS: REMEDY ESSENTIAL ZINC PASTE 113 GM TOP SCH ×2 (08:11→20:48)
[2021-08-17] MEDS: FLUTICASONE PROP NASAL SPRAY 16 GM BOTTLE NS SCH (08:11)
[2021-08-17] MEDS: ENSURE ENLIVE (VAN) 240 ML LIQUID PO SCH (08:11)
[2021-08-17] MEDS: MULTIVITAMINS,THERAPEUTIC TABLET PO SCH (08:11)
[2021-08-17 14:58] VITALS: BP 118/75
--- NOTE | 2021-08-17 15:57 | NUR ---
patient noted with noncompliance with PT, OT at times per rehab department, explained benefits, patient verbalized understanding of it and participate with PT, OT services, tolerated well. no acute distress noted, no events noted this shift.
[2021-08-17 20:00] VITALS: BP 134/76
[2021-08-17] MEDS: DOCUSATE SODIUM 100 MG CAPSULE PO SCH (20:43)
[2021-08-17] MEDS: ATORVASTATIN 20 MG TABLET PO SCH (20:43)
[2021-08-17] MEDS: ALPRAZOLAM 0.5 MG TABLET PO PRN (20:43)
[2021-08-18 04:00] VITALS: BP 114/72
[2021-08-18] MEDS: DIPHENOXYLATE HCL/ATROP SULF TABLET PO SCH (06:04)
[2021-08-18] MEDS: ALENDRONATE SODIUM 70 MG TABLET PO SCH (06:09)
[2021-08-18 07:41] VITALS: BP 125/78
[2021-08-18] MEDS: ACIDOPHILUS/BULGARICUS CHEW TAB PO SCH ×2 (08:18→20:36)
[2021-08-18] MEDS: CHOLECALCIFEROL 1,000 UNIT TABLET PO SCH (08:18)
[2021-08-18] MEDS: FUROSEMIDE 20 MG TABLET PO SCH (08:18)
[2021-08-18] MEDS: MULTIVITAMINS,THERAPEUTIC TABLET PO SCH (08:18)
[2021-08-18] MEDS: CHLORTHALIDONE 25 MG TABLET PO SCH (08:18)
[2021-08-18] MEDS: FERROUS SULFATE 325 MG TABEC PO SCH (08:18)
[2021-08-18] MEDS: FAMOTIDINE 20 MG TABLET PO SCH ×2 (08:18→20:25)
[2021-08-18] MEDS: METOPROLOL SUCCINATE XL 25 MG TAB.SR.24H PO SCH (08:19)
[2021-08-18] MEDS: APIXABAN 5 MG TABLET PO SCH ×2 (08:20→17:12)
[2021-08-18] MEDS: ENSURE ENLIVE (VAN) 240 ML LIQUID PO SCH (08:26)
[2021-08-18] MEDS: REMEDY ESSENTIAL ZINC PASTE 113 GM TOP SCH ×2 (08:29→20:26)
[2021-08-18] MEDS: LIPASE/PROTEASE/AMYLASE 4200 UNITS CAPSULE.DR PO SCH (08:29)
[2021-08-18] MEDS: FLUTICASONE PROP NASAL SPRAY 16 GM BOTTLE NS SCH (09:28)
[2021-08-18 15:03] VITALS: BP 114/57
[2021-08-18] MEDS: ATORVASTATIN 20 MG TABLET PO SCH (20:25)
[2021-08-18] MEDS: ALPRAZOLAM 0.5 MG TABLET PO PRN (20:25)
[2021-08-18] MEDS: DOCUSATE SODIUM 100 MG CAPSULE PO SCH (20:25)
[2021-08-18 20:36] VITALS: BP 134/58
--- NOTE | 2021-08-18 23:33 | NUR ---
Awake alert and oriented 3-4 Admitted for sepsis, RLE cellulitis, generalized weakness and deconditioning. Tolerated po meds well. Feels anxious, Xanax given. Incontinent of urine x2. Kept clean and dry. No BM noted this shift. Fall precautions noted. Repositioned. ill monitor patient. VSS. Kept comfortable.
[2021-08-19 04:15] VITALS: BP 98/51
[2021-08-19] MEDS: DIPHENOXYLATE HCL/ATROP SULF TABLET PO SCH (06:06)
[2021-08-19] MEDS: MULTIVITAMINS,THERAPEUTIC TABLET PO SCH (08:29)
[2021-08-19] MEDS: FAMOTIDINE 20 MG TABLET PO SCH ×2 (08:29→20:01)
[2021-08-19] MEDS: ACIDOPHILUS/BULGARICUS CHEW TAB PO SCH ×2 (08:29→20:01)
[2021-08-19] MEDS: FERROUS SULFATE 325 MG TABEC PO SCH (08:29)
[2021-08-19] MEDS: CHOLECALCIFEROL 1,000 UNIT TABLET PO SCH (08:29)
[2021-08-19] MEDS: APIXABAN 5 MG TABLET PO SCH ×2 (08:31→17:02)
[2021-08-19] MEDS: LIPASE/PROTEASE/AMYLASE 4200 UNITS CAPSULE.DR PO SCH (08:31)
[2021-08-19] MEDS: CHLORTHALIDONE 25 MG TABLET PO SCH (08:31)
[2021-08-19] MEDS: ENSURE ENLIVE (VAN) 240 ML LIQUID PO SCH ×3 (08:32→17:08)
[2021-08-19] MEDS: FUROSEMIDE 20 MG TABLET PO SCH (08:35)
[2021-08-19] MEDS: FLUTICASONE PROP NASAL SPRAY 16 GM BOTTLE NS SCH (08:36)
[2021-08-19 09:01] VITALS: BP 112/70
[2021-08-19] MEDS: METOPROLOL SUCCINATE XL 25 MG TAB.SR.24H PO SCH (09:21)
[2021-08-19] MEDS: REMEDY ESSENTIAL ZINC PASTE 113 GM TOP SCH ×2 (09:21→20:18)
--- NOTE | 2021-08-19 11:28 | NUR ---
Patient seen by Dr. Carrol MD made aware regarding patient been refusing Colace HS as endorsed by rn night nurse and MD ordered to discontinue Colace.
[2021-08-19 16:12] VITALS: BP 131/84
[2021-08-19] MEDS: ALPRAZOLAM 0.5 MG TABLET PO PRN (20:01)
[2021-08-19] MEDS: ATORVASTATIN 20 MG TABLET PO SCH (20:01)
[2021-08-19 20:25] VITALS: BP 123/62
[2021-08-20 04:00] VITALS: BP 139/76
[2021-08-20] MEDS: DIPHENOXYLATE HCL/ATROP SULF TABLET PO SCH (05:40)
[2021-08-20 06:30] LABS: HEMATOCRIT 28.6 % (36.7-47.1); MEAN CORPUSCULAR HEMOGLOBIN 29.3 uug (23.8-33.4); MEAN CORPUSCULAR VOLUME 87.6 fL (73.0-96.2); PLATELET COUNT (AUTO) 498 K/uL (152-348)
[2021-08-20 06:41] LABS: ALANINE AMINOTRANSFERASE 26 U/L (16-63); ALKALINE PHOSPHATASE 84 U/L (50-136); ASPARTATE AMINOTRANSFERASE 21 U/L (15-37); BILIRUBIN,TOTAL 0.6 mg/dL (0.2-1.0); CARBON DIOXIDE 38 mmol/L (21-32); CHLORIDE 101 mmol/L (98-107); CREATININE 1.5 mg/dL (0.6-1.3); GLUCOSE 108 mg/dL (74-106); MAGNESIUM 1.9 mg/dL (1.8-2.4); PHOSPHOROUS 4.2 mg/dL (2.5-4.9); POTASSIUM 3.6 mmol/L (3.5-5.1); TOTAL PROTEIN, SERUM 6.3 g/dL (6.4-8.2); UREA NITROGEN, BLOOD 25 mg/dL (7-18)
[2021-08-20 07:54] VITALS: BP 143/83
[2021-08-20] MEDS: ENSURE ENLIVE (VAN) 240 ML LIQUID PO SCH ×3 (09:00→17:43)
[2021-08-20] MEDS: CHOLECALCIFEROL 1,000 UNIT TABLET PO SCH (09:06)
[2021-08-20] MEDS: APIXABAN 5 MG TABLET PO SCH ×2 (09:06→17:40)
[2021-08-20] MEDS: FERROUS SULFATE 325 MG TABEC PO SCH (09:06)
[2021-08-20] MEDS: ACIDOPHILUS/BULGARICUS CHEW TAB PO SCH ×2 (09:07→20:12)
[2021-08-20] MEDS: FUROSEMIDE 20 MG TABLET PO SCH (09:07)
[2021-08-20] MEDS: FAMOTIDINE 20 MG TABLET PO SCH ×2 (09:07→20:12)
[2021-08-20] MEDS: CHLORTHALIDONE 25 MG TABLET PO SCH (09:14)
[2021-08-20] MEDS: LIPASE/PROTEASE/AMYLASE 4200 UNITS CAPSULE.DR PO SCH (09:14)
[2021-08-20] MEDS: MULTIVITAMINS,THERAPEUTIC TABLET PO SCH (09:14)
[2021-08-20] MEDS: METOPROLOL SUCCINATE XL 25 MG TAB.SR.24H PO SCH (09:14)
[2021-08-20] MEDS: FLUTICASONE PROP NASAL SPRAY 16 GM BOTTLE NS SCH (11:23)
[2021-08-20] MEDS: REMEDY ESSENTIAL ZINC PASTE 113 GM TOP SCH ×2 (12:16→20:11)
[2021-08-20] MEDS ORDERED: ONDANSETRON HCL 4 MG TABLET PO PRN (13:30)
[2021-08-20 16:00] LABS: *OCCULT BLOOD STOOL POSITIVE (NEGATIVE)
[2021-08-20 16:08] VITALS: BP 137/65
[2021-08-20 20:00] VITALS: BP 128/67
--- NOTE | 2021-08-20 20:00 | NUR ---
RECEIVED PATIENT AWAKE IN BED. A/O X2-3, BUT VERY FORGETFUL. VS WNL. DENIES ANY PAIN OR DISCOMFORT. REQUESTING FOR XANAX PRN FOR SLEEP. NO RESP. DISTRESS NOTED. ON O2 2L NC SATING WELL. DENIES SOB. BED ALARM ON. CALL LIGHT IN REACH. ALL NEEDS ATTENDED. WILL CONTINUE TO MONITOR AND ASSESS.
[2021-08-20] MEDS: ATORVASTATIN 20 MG TABLET PO SCH (20:11)
[2021-08-20] MEDS: ALPRAZOLAM 0.5 MG TABLET PO PRN (20:12)
[2021-08-20] MEDS: DOXYCYCLINE HYCLATE 100 MG TABLET PO SCH (20:23)
[2021-08-21 04:00] VITALS: BP 118/59
[2021-08-21] MEDS: DIPHENOXYLATE HCL/ATROP SULF TABLET PO SCH ×2 (06:30→08:48)
--- NOTE | 2021-08-21 06:30 | NUR ---
PATIENT ASLEEP IN BED. EASILY AROUSABLE BUT QUICKLY GOES BACK TO SLEEP. UNABLE TO GIVE LOMOTIL AT THIS TIME. 2 TABS OF LOMOTIL WASTED, WITNESS WITH RN. WILL ENDORSE TO AM SHIFT TO GIVE ONCE PATIENT IS AWAKE. ALL NEEDS ATTENDED.
--- NOTE | 2021-08-21 06:31 | NUR ---
PATIENT SLEPT WELL THROUGHOUT THE NIGHT. DENIES PAIN. BED ALARM ON. CALL LIGHT IN REACH. ALL NEEDS ATTENDED. WILL CONTINUE TO MONITOR AND ASSESS.
[2021-08-21 07:56] VITALS: BP 143/74
[2021-08-21] MEDS: FUROSEMIDE 20 MG TABLET PO SCH (08:28)
[2021-08-21] MEDS: MULTIVITAMINS,THERAPEUTIC TABLET PO SCH (08:28)
[2021-08-21] MEDS: DOXYCYCLINE HYCLATE 100 MG TABLET PO SCH ×2 (08:28→20:54)
[2021-08-21] MEDS: APIXABAN 5 MG TABLET PO SCH ×2 (08:28→16:55)
[2021-08-21] MEDS: FAMOTIDINE 20 MG TABLET PO SCH ×2 (08:28→20:54)
[2021-08-21] MEDS: METOPROLOL SUCCINATE XL 25 MG TAB.SR.24H PO SCH (08:34)
[2021-08-21] MEDS: CHOLECALCIFEROL 1,000 UNIT TABLET PO SCH (08:34)
[2021-08-21] MEDS: ACIDOPHILUS/BULGARICUS CHEW TAB PO SCH ×2 (08:34→20:54)
[2021-08-21] MEDS: LIPASE/PROTEASE/AMYLASE 4200 UNITS CAPSULE.DR PO SCH (08:35)
[2021-08-21] MEDS: CHLORTHALIDONE 25 MG TABLET PO SCH (08:35)
[2021-08-21] MEDS: ENSURE ENLIVE (VAN) 240 ML LIQUID PO SCH ×3 (08:35→16:55)
[2021-08-21] MEDS: REMEDY ESSENTIAL ZINC PASTE 113 GM TOP SCH ×2 (08:36→20:55)
[2021-08-21] MEDS: FLUTICASONE PROP NASAL SPRAY 16 GM BOTTLE NS SCH (08:40)
--- NOTE | 2021-08-21 10:47 | NUR ---
RECEIVED PT ON BED. DENIES ANY PAIN OR DISCOMFORT. TOLERATED WELL THE MEDS. ALERT/ORIENTED X 3. PT ON ATB THERAPY DOXYCYCLINE PO GIVEN. WILL MONITOR PT FOR SAFETY.
[2021-08-21] MEDS: FERROUS SULFATE 325 MG TABEC PO SCH (11:49)
[2021-08-21 16:24] VITALS: BP 127/80
[2021-08-21 20:00] VITALS: BP 115/56
[2021-08-21] MEDS: ATORVASTATIN 20 MG TABLET PO SCH (20:54)
[2021-08-21] MEDS: ALPRAZOLAM 0.5 MG TABLET PO PRN (20:58)
[2021-08-22 04:00] VITALS: BP 139/71
[2021-08-22] MEDS: DIPHENOXYLATE HCL/ATROP SULF TABLET PO SCH (06:18)
[2021-08-22 06:34] LABS: HEMATOCRIT 30.9 % (36.7-47.1); MEAN CORPUSCULAR HEMOGLOBIN 29.8 uug (23.8-33.4); MEAN CORPUSCULAR VOLUME 87.3 fL (73.0-96.2); PLATELET COUNT (AUTO) 543 K/uL (152-348)
[2021-08-22 06:58] LABS: CARBON DIOXIDE 37 mmol/L (21-32); CHLORIDE 99 mmol/L (98-107); CREATININE 1.6 mg/dL (0.6-1.3); GLUCOSE 114 mg/dL (74-106); MAGNESIUM 1.9 mg/dL (1.8-2.4); PHOSPHOROUS 4.2 mg/dL (2.5-4.9); POTASSIUM 3.6 mmol/L (3.5-5.1); UREA NITROGEN, BLOOD 26 mg/dL (7-18)
[2021-08-22 08:00] VITALS: BP 135/72
[2021-08-22] MEDS: CHLORTHALIDONE 25 MG TABLET PO SCH (09:20)
[2021-08-22] MEDS: FAMOTIDINE 20 MG TABLET PO SCH ×2 (09:21→20:27)
[2021-08-22] MEDS: ACIDOPHILUS/BULGARICUS CHEW TAB PO SCH ×2 (09:21→20:27)
[2021-08-22] MEDS: ENSURE ENLIVE (VAN) 240 ML LIQUID PO SCH ×3 (09:21→16:47)
[2021-08-22] MEDS: FLUTICASONE PROP NASAL SPRAY 16 GM BOTTLE NS SCH (09:21)
[2021-08-22] MEDS: DOXYCYCLINE HYCLATE 100 MG TABLET PO SCH ×2 (09:21→20:27)
[2021-08-22] MEDS: CHOLECALCIFEROL 1,000 UNIT TABLET PO SCH (09:21)
[2021-08-22] MEDS: MULTIVITAMINS,THERAPEUTIC TABLET PO SCH (09:22)
[2021-08-22] MEDS: FUROSEMIDE 20 MG TABLET PO SCH (09:22)
[2021-08-22] MEDS: METOPROLOL SUCCINATE XL 25 MG TAB.SR.24H PO SCH (09:22)
[2021-08-22] MEDS: REMEDY ESSENTIAL ZINC PASTE 113 GM TOP SCH ×2 (09:23→20:29)
[2021-08-22] MEDS: LIPASE/PROTEASE/AMYLASE 4200 UNITS CAPSULE.DR PO SCH (09:23)
[2021-08-22] MEDS: APIXABAN 5 MG TABLET PO SCH ×2 (09:24→16:47)
[2021-08-22] MEDS: FERROUS SULFATE 325 MG TABEC PO SCH (11:08)
--- NOTE | 2021-08-22 13:50 | NUR ---
Patient is complaining of weakness. Dr To made rounds and order BNP. Latest vs BP 128/85, HR 87, o2sat 98% on 02 at 2L via NC. No acute distress noted. will continue to monitor. Addendum: 08/22/21 at 1359 by JUNE S JAYCE RN BNP order in error. BMP result dated 08/22 per MD is okay. No need for repeat BMP. Lab made aware. will continue to monitor.
[2021-08-22] MEDS: ACETAMINOPHEN 325 MG TABLET PO PRN ×2 (14:23→20:28)
--- NOTE | 2021-08-22 15:02 | NUR ---
INTERDISCIPLINARY TEAM CONFERENCE
[2021-08-22 16:35] VITALS: BP 132/76
--- NOTE | 2021-08-22 18:57 | NUR ---
Patient remained stable during the shift. no other concerns identified. kept safe at all times. all needs attended. will endorse to the next shift for continuity of care.
--- NOTE | 2021-08-22 19:15 | NUR ---
Received patient on bed, alert, and oriented x3-4, no complaint of pain , no shortness of breath noted. Safety precautions provided, call light placed within reach.
[2021-08-22 20:00] VITALS: BP 127/68
[2021-08-22] MEDS: ATORVASTATIN 20 MG TABLET PO SCH (20:28)
[2021-08-22] MEDS: ALPRAZOLAM 0.5 MG TABLET PO PRN (20:28)
--- NOTE | 2021-08-22 21:45 | NUR ---
Patient requested for Xanax, patient in calm behavior.
[2021-08-23 04:00] VITALS: BP 124/67
[2021-08-23] MEDS: DIPHENOXYLATE HCL/ATROP SULF TABLET PO SCH (06:23)
--- NOTE | 2021-08-23 06:50 | NUR ---
Slept well , no shortness of breath noted, No significant event within the shift, endorsed to AM shift, for possible discharge today.
[2021-08-23 08:00] VITALS: BP 121/61
[2021-08-23] MEDS: METOPROLOL SUCCINATE XL 25 MG TAB.SR.24H PO SCH (09:00)
[2021-08-23] MEDS: FAMOTIDINE 20 MG TABLET PO SCH (09:08)
[2021-08-23] MEDS: DOXYCYCLINE HYCLATE 100 MG TABLET PO SCH (09:08)
[2021-08-23] MEDS: CHOLECALCIFEROL 1,000 UNIT TABLET PO SCH (09:08)
[2021-08-23] MEDS: CHLORTHALIDONE 25 MG TABLET PO SCH (09:09)
[2021-08-23] MEDS: LIPASE/PROTEASE/AMYLASE 4200 UNITS CAPSULE.DR PO SCH (09:09)
[2021-08-23] MEDS: REMEDY ESSENTIAL ZINC PASTE 113 GM TOP SCH (09:10)
[2021-08-23] MEDS: ENSURE ENLIVE (VAN) 240 ML LIQUID PO SCH ×2 (09:10→13:21)
[2021-08-23] MEDS: FLUTICASONE PROP NASAL SPRAY 16 GM BOTTLE NS SCH (09:10)
[2021-08-23] MEDS: ACIDOPHILUS/BULGARICUS CHEW TAB PO SCH (09:22)
[2021-08-23] MEDS: MULTIVITAMINS,THERAPEUTIC TABLET PO SCH (09:22)
[2021-08-23] MEDS: FUROSEMIDE 20 MG TABLET PO SCH (09:23)
[2021-08-23] MEDS: APIXABAN 5 MG TABLET PO SCH (09:25)
--- NOTE | 2021-08-23 09:26 | NUR ---
Hold Metoprolol, HR is 56, below normal range. no distress identified. will continue to monitor.
[2021-08-23] MEDS: FERROUS SULFATE 325 MG TABEC PO SCH (10:41)
--- NOTE | 2021-08-23 11:49 | NUR ---
Noted with redness to groin and inner buttocks. wound consult made. applied zguard for protection. patient is on BRENT mattress. turned and repositioned.
[2021-08-23] MEDS ORDERED: CLOTRIMAZOLE 1% CREAM 30 GM TUBE TOP SCH (12:30)
[2021-08-23 15:05] VITALS: BP 119/78
[2021-08-23] MEDS ORDERED: FURO20TA4 PO (15:27)
[2021-08-23] MEDS ORDERED: ALEN70TA80 PO (15:27)
[2021-08-23] MEDS ORDERED: CHLO25TA2 PO (15:27)
[2021-08-23] MEDS ORDERED: MULT-24 PO (15:27)
[2021-08-23] MEDS ORDERED: ATOR20TA PO (15:27)
[2021-08-23] MEDS ORDERED: FLUT16SP16 NS (15:27)
[2021-08-23] MEDS ORDERED: DOCU-141 PO (15:27)
[2021-08-23] MEDS ORDERED: MULT-594 PO (15:27)
[2021-08-23] MEDS ORDERED: DOXY100T2 PO (15:27)
[2021-08-23] MEDS ORDERED: APIX5TAB PO (15:27)
[2021-08-23] MEDS ORDERED: METO-356 PO (15:27)
[2021-08-23] MEDS ORDERED: CLOT30CR24 TOP (15:27)
[2021-08-23] MEDS ORDERED: LIPA1CAP34 PO (15:27)
[2021-08-23] MEDS ORDERED: CHOL100062 PO (15:27)
[2021-08-23] MEDS ORDERED: FERR325T28 PO (15:27)
--- NOTE | 2021-08-23 17:42 | NUR ---
1630H : discharged patient on stable condition, no distress identified. no pain noted. all needs attended. Started Lotrimin to the groin and buttocks area before dc as ordered and to continue at home. Left via ambulance. dc instructions given, noted with understanding. belonging list signed and returned to the patient. kept safe at all times. no concerns identified.
== END 2021-08-23 16:30 | disposition home health service (06) | DRG 871 ==
LOC: TELE3 18:46
PROVIDERS: ADMIT Physical Medicine & Rehabilitation Pain Medicine; ATTEND Physical Medicine & Rehabilitation Pain Medicine
PROC: 05HC33Z Insertion of Infusion Device into Left Basilic Vein, Percutaneous Approach (ICD-10-PCS; principal; 2021-08-20)
DX: A41.9 Sepsis, unspecified organism (principal); I21.A1 Myocardial infarction type 2; I50.31 Acute diastolic (congestive) heart failure; L03.115 Cellulitis of right lower limb; L97.919 Non-pressure chronic ulcer of unspecified part of right lower leg with unspecified severity; J96.11 Chronic respiratory failure with hypoxia; I47.1 Supraventricular tachycardia; Z68.30 Body mass index [BMI] 30.0-30.9, adult; I11.0 Hypertensive heart disease with heart failure; E66.9 Obesity, unspecified; I87.2 Venous insufficiency (chronic) (peripheral); I49.1 Atrial premature depolarization; I48.0 Paroxysmal atrial fibrillation; M81.0 Age-related osteoporosis without current pathological fracture; Z95.1 Presence of aortocoronary bypass graft; Z87.01 Personal history of pneumonia (recurrent); E78.5 Hyperlipidemia, unspecified; D50.9 Iron deficiency anemia, unspecified; I25.10 Atherosclerotic heart disease of native coronary artery without angina pectoris; Z99.81 Dependence on supplemental oxygen; I07.1 Rheumatic tricuspid insufficiency; R73.03 Prediabetes; M19.90 Unspecified osteoarthritis, unspecified site; R53.1 Weakness; R26.9 Unspecified abnormalities of gait and mobility
CPT/HCPCS: 36415; 71045; 83735; 84100; 85025; 94640; 97161; 97535-GO-CO; A6209; J0696; J3370; J3535; J7040; J7060; J8499

== ENCOUNTER 2021-09-15 11:10 | Inpatient (IN) | payer MEDICARE, BC ==
[~2021-09-15] VITALS: Ht 175.3 cm; Wt 90.7 kg
[~2021-09-15 11:10] MED LIST changes: -ALBU2.5V7 NEB; -CEFT1FRO2 IV; +CLOT30CR24 TOP; +DOXY100T2 PO; -FAMO-132 PO; +FLUT16SP16 NS; +FURO20TA4 PO; -LIPA1CAP28 PO; +LIPA1CAP34 PO; +MULT-24 PO; -PANT40TA49 PO; -VANC1.5V IV; -ZENPEP PO
[2021-09-15] MEDS ORDERED: DIPH1TAB PO (11:43)
[2021-09-15] MEDS ORDERED: FAMO-132 PO (11:43)
[2021-09-15] MEDS ORDERED: PRED20TA PO (11:43)
[2021-09-15] MEDS ORDERED: XANAX (11:43)
[2021-09-15] MEDS ORDERED: FURO-151 PO (11:43)
[2021-09-15] MEDS ORDERED: LIPA1CAP27 PO (11:43)
[2021-09-15] MEDS ORDERED: TAMSULOSIN (11:43)
--- NOTE | 2021-09-15 11:49 | NUR ---
pt BIB [facility], reports pt has increasing weakness and cellulitis in right leg, previous DX of pnumonia, still on 2lpm O2. Pt c/o of right lower leg cellulitis, previously treated here for it. Equal paper baler, symetrical face and smile, tongue midline, no drift in arms, some weakness and drift in both legs. Pt denies CP, SOB, dizziness, n/v, no other complaints, no distress noted.
[2021-09-15 12:03] LABS: HEMATOCRIT 30.4 % (36.7-47.1); PLATELET COUNT (AUTO) 141 K/uL (152-348)
[2021-09-15 12:21] LABS: CARBON DIOXIDE 38 mmol/L (21-32); CHLORIDE 99 mmol/L (98-107); GLUCOSE 166 mg/dL (74-106); POTASSIUM 4.1 mmol/L (3.5-5.1); UREA NITROGEN, BLOOD 41 mg/dL (7-18)
[2021-09-15 12:25] LABS: ALANINE AMINOTRANSFERASE 20 U/L (16-63); ALKALINE PHOSPHATASE 62 U/L (50-136); ASPARTATE AMINOTRANSFERASE 18 U/L (15-37); BILIRUBIN,DIRECT 0.2 mg/dL (0.0-0.2); BILIRUBIN,TOTAL 0.9 mg/dL (0.2-1.0); TOTAL PROTEIN, SERUM 6.4 g/dL (6.4-8.2)
[2021-09-15] MEDS ORDERED: AZITHROMYCIN IV 500 MG in IV DEXTROSE 5% 250 ML IV ONE (12:45)
[2021-09-15] MEDS ORDERED: CEFTRIAXONE 1 G in IV DEXTROSE 5% 50 ML IV ONE (12:45)
[2021-09-15] MEDS ORDERED: CEFTRIAXONE /D5W 50ML IVPB **ER PYXIS IV ONE (12:55)
[2021-09-15] MEDS ORDERED: AZITHROMYCIN 500MG/ D5W 250ML IVPB **ER PYXIS ONLY IV ONE (12:55)
--- NOTE | 2021-09-15 13:40 | NUR ---
IV Rocephin finished at 1338. Started Azithromycin. 3rd floor not able to accept pt yet. WCB in 1 hour.
--- NOTE | 2021-09-15 14:50 | NUR ---
Azithromycin finished infusing.
--- NOTE | 2021-09-15 15:03 | NUR ---
Pt's diaper changed.
--- NOTE | 2021-09-15 15:55 | NUR ---
called report to HORACE Shepherd
[2021-09-15 16:28] VITALS: BP 151/81
--- NOTE | 2021-09-15 18:27 | NUR ---
Received patient for admission. Admission process complete. Awaiting reconciliation of medication. Doctor notified. IV site patent and intact. Bed left in lowest position with call light within reach. Comfort measures provided. Will endorse information to PM nurse.
[2021-09-15] MEDS ORDERED: ALPR1TAB7 PO (18:46)
[2021-09-15] MEDS ORDERED: ALEN70TA80 PO (18:46)
[2021-09-15] MEDS ORDERED: TAMS-3 PO (18:47)
--- NOTE | 2021-09-15 19:20 | NUR ---
RECEIVED PATIENT IN BED. AAOX4. ON 2L O2, SATURATING AT 100%. PATIENT DENIES SOB, CHEST PAIN OR DIZZINESS. IV ACCESS PATENT AND INTACT. SAFETY PRECAUTIONS INITIATED, CALL LIGHT BUTTON WITHIN REACH AND BED LOCKED. MONITORED CLOSELY.
[2021-09-15] MEDS ORDERED: CLONIDINE HCL 0.1 MG TABLET PO PRN (19:30)
[2021-09-15] MEDS ORDERED: LIPASE/PROTEASE/AMYLASE 4200 UNITS CAPSULE.DR PO SCH (19:30)
[2021-09-15] MEDS ORDERED: ALBUTEROL SULFATE 2.5 MG/3 ML NEBU NEB PRN (19:45)
--- NOTE | 2021-09-15 19:51 | NUR ---
PATIENT HAS NOTED TO BE AGITATED AND REQUESTING TO SMOKE EVERY HOUR. HOWEVER, UNIT HAS BEEN BUSY AND UNAVAILABLE TO TAKE HIM DOWN TO SMOKE. DR. MCKNIGHT HAS BEEN INFORMED, AND AGREED TO LET HIM GO AMA. Addendum: 09/15/21 at 2335 by DAVIS VALDEZ RN DISREGARD WRONG PATIENT
--- NOTE | 2021-09-15 19:52 | NUR ---
CALLED [facility] [phone] (PT'S FRIEND) AND BULKER ON FILE, UNFORTUNATELY, [facility] IS UNAVAILABLE TO TAKE CALL AND INFORMED THAT THEY WILL CALL TOMORROW MORNING. Addendum: 09/15/21 at 2335 by DAVIS VALDEZ RN PLS DISREGARD WRONG PATIENT
--- NOTE | 2021-09-15 19:53 | NUR ---
PATIENT HAS BEEN EDUCATED AND INFORMED REGARDING NPO STATUS AT MIDNIGHT FOR SCHEDULED EGD AT 10AM IN THE MORNING TO BE DONE BY DR. SCHULTZ. Addendum: 09/15/21 at 2335 by DAVIS VALDEZ RN DISREGARD WRONG PATIENT
[2021-09-15] MEDS: DOCUSATE SODIUM 100 MG CAPSULE PO SCH (20:27)
[2021-09-15] MEDS: TAMSULOSIN HCL 0.4 MG CAP.SR.24H PO SCH (20:27)
[2021-09-15] MEDS: APIXABAN 5 MG TABLET PO SCH (20:27)
[2021-09-15] MEDS: ATORVASTATIN 20 MG TABLET PO SCH (20:28)
[2021-09-15 20:39] VITALS: BP 134/76
[2021-09-16 04:28] VITALS: BP 129/72
--- NOTE | 2021-09-16 05:11 | NUR ---
PATIENT SLEPT THROUGH THE NIGHT WITH NO COMPLAINTS. PERIODS OF COUGHING NOTED. ON 1L O2. IV ACCESS PATENT AND INTACT. ADVISED PATIENT TO PEE INTO URINAL, TO COLLECT SAMPLE AND SEND TO LAB. SAFETY PRECAUTIONS MAINTAINED. WILL ENDORSE TO DAY SHIFT.
[2021-09-16 06:39] LABS: HEMATOCRIT 28.6 % (36.7-47.1); MEAN CORPUSCULAR HEMOGLOBIN 30.6 uug (23.8-33.4); MEAN CORPUSCULAR VOLUME 89.5 fL (73.0-96.2); PLATELET COUNT (AUTO) 130 K/uL (152-348)
[2021-09-16 07:18] LABS: BILIRUBIN,TOTAL 0.9 mg/dL (0.2-1.0); CREATININE 0.9 mg/dL (0.6-1.3); MAGNESIUM 1.8 mg/dL (1.8-2.4); PHOSPHOROUS 4.1 mg/dL (2.5-4.9); POTASSIUM 4.1 mmol/L (3.5-5.1); TOTAL PROTEIN, SERUM 5.8 g/dL (6.4-8.2)
--- NOTE | 2021-09-16 07:30 | NUR ---
IN BED ASLEEP EASILY AROUSABLE ON ROUNDS DENIES PAIN OR DISCOMFORTS AT THIS TIME ON O2 WITH NO SOB CALL LIGHTS AND PERSONAL BELONGINGS ARE WITHIN EASY REACH WILL CONTINUE TO OBSERVE.
[2021-09-16] MEDS: FAMOTIDINE 20 MG TABLET PO SCH (09:19)
[2021-09-16] MEDS: APIXABAN 5 MG TABLET PO SCH ×2 (09:19→20:32)
[2021-09-16] MEDS: FERROUS SULFATE 325 MG TABEC PO SCH (09:20)
[2021-09-16] MEDS: MULTIVITAMINS,THERAPEUTIC TABLET PO SCH (09:20)
[2021-09-16] MEDS: FUROSEMIDE 40 MG/4 ML VIAL IV SCH (09:20)
[2021-09-16] MEDS: METOPROLOL SUCCINATE XL 25 MG TAB.SR.24H PO SCH (09:21)
[2021-09-16] MEDS: CHLORTHALIDONE 25 MG TABLET PO SCH (09:21)
[2021-09-16] MEDS: CEFTRIAXONE 1 G in IV DEXTROSE 5% 50 ML IV SCH (09:22)
[2021-09-16 09:47] VITALS: BP 137/77
[2021-09-16] MEDS: AZITHROMYCIN IV 500 MG in IV DEXTROSE 5% 250 ML IV SCH (10:01)
[2021-09-16 11:11] LABS: *BILIRUBIN,URIN NEGATIVE (NEGATIVE); *CLARITY,URINE CLEAR (CLEAR); *COLOR,URINE YELLOW (YELLOW); *KETONES,URINE NEGATIVE (NEGATIVE); *UROBILINOGEN,URINE 0.2 E.U./dl (NORMAL); LEUKOCYTE ESTERASE ,URINE NEGATIVE (NEGATIVE); NITRITE, URINE NEGATIVE (NEGATIVE); PH,URINE 6.5 (5.0-8.0); UGLUCOSE NEGATIVE (NEGATIVE)
[2021-09-16 11:13] LABS: *BLOOD, URINE TRACE (NEGATIVE)
[2021-09-16 12:23] LABS: BACTERIA,URINE FEW /HPF (NONE SEEN); RBC,URINE NONE SEEN /HPF (0-3); SQUAMOUS EPITHELIAL CELL,UR FEW /HPF (NONE SEEN)
[2021-09-16 14:06] VITALS: BP 126/78
--- NOTE | 2021-09-16 14:36 | NUR ---
PATIENT STATED TAKES LOMOTIL AT HOME AND WANTS IT HERE HAS HAD 2 LOOSE BOWEL MOVEMENTS SO FAR DR WILSON NOTIFIED WITH OK TO RESTART AND NOTED.
[2021-09-16] MEDS: DIPHENOXYLATE HCL/ATROP SULF TABLET PO PRN ×2 (15:32→21:42)
--- NOTE | 2021-09-16 15:33 | NUR ---
LOMOTIL 2 TABS GIVEN AT THIS TIME ORDERED WILL OBSERVE.
--- NOTE | 2021-09-16 18:00 | NUR ---
STATED LOMOTIL IS HELPFUL BUT WANTS TO GET ANOTHER DOSE WHEN ITS DUE WILL ENDORSE.
[2021-09-16 18:16] VITALS: BP 127/67
--- NOTE | 2021-09-16 19:15 | NUR ---
RECEIVED PATIENT IN BED. AAOX4. ABLE TO MAKE NEEDS KNOWN. ON 1L O2, DENIES SOB, CHEST PAIN OR DIZZINESS. SAFETY PRECAUTIONS MAINTAINED. WILL ENDORSE TO DAY SHIFT. Addendum: 09/17/21 at 0018 by DAVIS VALDEZ RN WILL CONTINUE MONITOR
[2021-09-16] MEDS: ALPRAZOLAM 0.5 MG TABLET PO PRN (20:31)
[2021-09-16] MEDS: TAMSULOSIN HCL 0.4 MG CAP.SR.24H PO SCH (20:31)
[2021-09-16] MEDS: ATORVASTATIN 20 MG TABLET PO SCH (20:31)
[2021-09-16] MEDS: DOCUSATE SODIUM 100 MG CAPSULE PO SCH (20:31)
[2021-09-16] MEDS: REMEDY ESSENTIAL ZINC PASTE 113 GM TOP SCH (20:32)
[2021-09-16 21:04] VITALS: BP 114/66
[2021-09-17 04:55] VITALS: BP 123/64
[2021-09-17] MEDS ORDERED: DIPHENOXYLATE HCL/ATROP SULF TABLET ONE ×2 (05:36→05:37)
[2021-09-17] MEDS: DIPHENOXYLATE HCL/ATROP SULF TABLET PO PRN ×2 (06:39→20:08)
--- NOTE | 2021-09-17 06:42 | NUR ---
PATIENT SLEPT THROUGH THE NIGHT WITH NO COMPLAINTS. PATIENT VERBALIZED HE FEELS BETTER THAN HE WAS DURING ADMISSION. STILL ON 1L O2. PATIENT DENIES SOB, PAIN OR DIZZINESS. PRODUCTIVE COUGHING NOTED. PT REQUESTED LONOX FOR DIARRHEA, GIVEN AND TOLERATED. SAFETY PRECAUTIONS MAINTAINED. WILL ENDORSE TO DAY SHIFT.
[2021-09-17] MEDS: MULTIVITAMINS,THERAPEUTIC TABLET PO SCH (08:53)
[2021-09-17] MEDS: APIXABAN 5 MG TABLET PO SCH ×2 (08:53→20:08)
[2021-09-17] MEDS: FERROUS SULFATE 325 MG TABEC PO SCH (08:53)
[2021-09-17] MEDS: FAMOTIDINE 20 MG TABLET PO SCH (08:53)
[2021-09-17] MEDS: CHLORTHALIDONE 25 MG TABLET PO SCH (08:54)
[2021-09-17] MEDS: FUROSEMIDE 40 MG/4 ML VIAL IV SCH (08:54)
[2021-09-17] MEDS: METOPROLOL SUCCINATE XL 25 MG TAB.SR.24H PO SCH (08:55)
[2021-09-17] MEDS: CEFTRIAXONE 1 G in IV DEXTROSE 5% 50 ML IV SCH (08:56)
[2021-09-17] MEDS: REMEDY ESSENTIAL ZINC PASTE 113 GM TOP SCH ×2 (08:58→20:10)
[2021-09-17] MEDS: AZITHROMYCIN IV 500 MG in IV DEXTROSE 5% 250 ML IV SCH (09:51)
--- NOTE | 2021-09-17 10:00 | NUR ---
AWAKE ALERT AND ORIENTED SEEMS TO REPEAT SELF BUT IS COOPERATIVE WITH PEROIDS OF ANXIETY ABLE TO MAKE NEEDS KNOW NO S/S OF PAIN OR DISCOMFORTS AT THIS TIME REMAIN ON ATB ORDERED WITH NO ADVERSE OR ALLERGIC REACTIONS AT THIS TIME CALL LIGHTS AND PERSONAL BELONGINGS ARE WITHIN EASY REACH AT THIS TIME WILL CONTINUE TO OBSERVE.
--- NOTE | 2021-09-17 12:43 | NUR ---
WOUND CARE CONSULT: PT PRESENTS WITH INTACT DEEP TISSUE INJURY TO SACRUM, SLIGHT REDNESS TO RT LOWER LEG, AND RASH TO GROIN FOLDS AND PERINEUM, ALL PRESENT ON ADMISSION. RECOMMENDATIONS MADE FOR SKIN PROTECTION. DISCUSSED WITH NURSING STAFF. DR BELL NOTIFIED OF DPM CONSULT REQUEST. MD IN AGREEMENT WITH PLAN OF CARE.
[2021-09-17 15:24] VITALS: BP 100/54
--- NOTE | 2021-09-17 18:00 | NUR ---
RESTING IN BED IN A VERY BAD MOOD YELLED AT THIS WRITTER WHEN I ATTEMPTED TO CHECK HIS IV LINE TO ENSURE THAT ITS PATENT STATED JUST LEAVE ME ALONE AND DO NOT TOUCH ME .UNCOOPERATIVE UNABLE TO FIND OUT WHAT THE ISSUES ARE ALERT AND ORIENTED CALL LIGHT PLACED WITHIN EASY REACH MADE COMFORTABLE WILL CONTINUE TO OBSERVE.
[2021-09-17 20:00] VITALS: BP 119/64
[2021-09-17] MEDS: TAMSULOSIN HCL 0.4 MG CAP.SR.24H PO SCH (20:08)
[2021-09-17] MEDS: ATORVASTATIN 20 MG TABLET PO SCH (20:08)
[2021-09-17] MEDS: CLOTRIMAZOLE/BETAMET DIPROP CREAM 15 GM TUBE TOP SCH (20:10)
[2021-09-17] MEDS: DOCUSATE SODIUM 100 MG CAPSULE PO SCH ×2 (20:10→20:16)
[2021-09-18 04:00] VITALS: BP 111/62
[2021-09-18] MEDS: DIPHENOXYLATE HCL/ATROP SULF TABLET PO PRN ×2 (06:32→21:43)
[2021-09-18 07:05] LABS: HEMATOCRIT 26.7 % (36.7-47.1); MEAN CORPUSCULAR HEMOGLOBIN 31.1 uug (23.8-33.4); MEAN CORPUSCULAR VOLUME 89.9 fL (73.0-96.2); PLATELET COUNT (AUTO) 131 K/uL (152-348)
[2021-09-18 07:06] LABS: CREATININE 1.1 mg/dL (0.6-1.3); MAGNESIUM 1.7 mg/dL (1.8-2.4); PHOSPHOROUS 3.9 mg/dL (2.5-4.9); POTASSIUM 4.1 mmol/L (3.5-5.1)
--- NOTE | 2021-09-18 08:10 | NUR ---
Critical lab value of CO2 41. notified.
[2021-09-18] MEDS: METOPROLOL SUCCINATE XL 25 MG TAB.SR.24H PO SCH (09:00)
[2021-09-18] MEDS ORDERED: MAGNESIUM OXIDE 400 MG TABLET PO ONE (09:15)
[2021-09-18] MEDS: FERROUS SULFATE 325 MG TABEC PO SCH (09:35)
[2021-09-18] MEDS: MULTIVITAMINS,THERAPEUTIC TABLET PO SCH (09:35)
[2021-09-18] MEDS: FAMOTIDINE 20 MG TABLET PO SCH (09:35)
[2021-09-18] MEDS: FUROSEMIDE 40 MG/4 ML VIAL IV SCH (09:35)
[2021-09-18] MEDS: CLOTRIMAZOLE/BETAMET DIPROP CREAM 15 GM TUBE TOP SCH ×2 (09:36→20:50)
[2021-09-18] MEDS: APIXABAN 5 MG TABLET PO SCH ×2 (09:37→20:49)
[2021-09-18] MEDS: CHLORTHALIDONE 25 MG TABLET PO SCH (09:37)
[2021-09-18] MEDS: REMEDY ESSENTIAL ZINC PASTE 113 GM TOP SCH ×2 (09:37→20:50)
[2021-09-18] MEDS: CEFTRIAXONE 1 G in IV DEXTROSE 5% 50 ML IV SCH (09:38)
[2021-09-18] MEDS: AZITHROMYCIN IV 500 MG in IV DEXTROSE 5% 250 ML IV SCH (09:38)
[2021-09-18 12:00] VITALS: BP 123/64
[2021-09-18] MEDS ORDERED: IV NORMAL SALINE 500 ML IV ONE (12:45)
[2021-09-18 16:00] VITALS: BP 126/62
--- NOTE | 2021-09-18 17:36 | NUR ---
Pt is a/o x 4, cooperative with care. Pt is pleasant and participated with physical therapy. All needs met, comfort measures provided, call light within reach. Will monitor and endorse.
[2021-09-18 20:00] VITALS: BP 122/60
[2021-09-18] MEDS: ALPRAZOLAM 0.5 MG TABLET PO PRN (20:48)
[2021-09-18] MEDS: ATORVASTATIN 20 MG TABLET PO SCH (20:49)
[2021-09-18] MEDS: TAMSULOSIN HCL 0.4 MG CAP.SR.24H PO SCH (20:49)
[2021-09-18] MEDS: DOCUSATE SODIUM 100 MG CAPSULE PO SCH (20:49)
[2021-09-19 04:00] VITALS: BP 112/66
--- NOTE | 2021-09-19 05:02 | NUR ---
Received patient in bed with VSS. Able to make needs known. Skin intact. No respiratory distress. Administered PRN Ativan for anxiety. Patient had relief and slept through the night.
[2021-09-19 06:26] LABS: CREATININE 1.1 mg/dL (0.6-1.3); POTASSIUM 3.8 mmol/L (3.5-5.1)
[2021-09-19] MEDS ORDERED: FUROSEMIDE 20 MG/2 ML VIAL IVP SCH (09:00)
[2021-09-19] MEDS: METOPROLOL SUCCINATE XL 25 MG TAB.SR.24H PO SCH (09:00)
[2021-09-19] MEDS ORDERED: FUROSEMIDE 40 MG/4 ML VIAL IV SCH (09:00)
[2021-09-19] MEDS: AZITHROMYCIN IV 500 MG in IV DEXTROSE 5% 250 ML IV SCH (09:16)
[2021-09-19] MEDS: DIPHENOXYLATE HCL/ATROP SULF TABLET PO PRN (09:16)
[2021-09-19] MEDS: FERROUS SULFATE 325 MG TABEC PO SCH (09:16)
[2021-09-19] MEDS: MULTIVITAMINS,THERAPEUTIC TABLET PO SCH (09:16)
[2021-09-19] MEDS: FAMOTIDINE 20 MG TABLET PO SCH (09:17)
[2021-09-19] MEDS: APIXABAN 5 MG TABLET PO SCH (09:23)
[2021-09-19] MEDS: CHLORTHALIDONE 25 MG TABLET PO SCH (09:25)
[2021-09-19] MEDS: REMEDY ESSENTIAL ZINC PASTE 113 GM TOP SCH (09:52)
[2021-09-19] MEDS: CLOTRIMAZOLE/BETAMET DIPROP CREAM 15 GM TUBE TOP SCH (09:52)
[2021-09-19] MEDS: CEFTRIAXONE 1 G in IV DEXTROSE 5% 50 ML IV SCH (10:39)
[2021-09-19 12:11] VITALS: BP 125/75
[2021-09-19] MEDS ORDERED: CLOT15CR36 TOP (12:24)
--- NOTE | 2021-09-19 12:51 | NUR ---
Patient to be discharged home. Spoke to Aayush at [facility] ambulance, cup machine operator is for 2pm today. Patient is aware.
--- NOTE | 2021-09-19 14:33 | NUR ---
Patient discharged home with all belongings, including 636 dollars that were being held in hospital safe. Patient is stable and understands discharge instructions. NO C/O SOB or chest pain. Patient to follow up with Primary care physician on September 28 at 12pm. Patient is aware. All needs attended, IV to left FA discontinued without complication.
[2021-09-22] MEDS ORDERED: ALENDRONATE SODIUM 70 MG TABLET PO SCH (06:00)
== END 2021-09-19 14:35 | disposition home or self-care (01) | DRG 193 ==
LOC: ER 11:10 → TELE3 12:55 → MEDSURG3 15:57
PROVIDERS: ADMIT Internal Medicine; ATTEND Nurse Practitioner Acute Care
DX: J15.9 Unspecified bacterial pneumonia (principal); I50.33 Acute on chronic diastolic (congestive) heart failure; N17.9 Acute kidney failure, unspecified; D68.59 Other primary thrombophilia; E87.3 Alkalosis; J96.11 Chronic respiratory failure with hypoxia; I11.0 Hypertensive heart disease with heart failure; D50.9 Iron deficiency anemia, unspecified; E66.9 Obesity, unspecified; E78.5 Hyperlipidemia, unspecified; I25.10 Atherosclerotic heart disease of native coronary artery without angina pectoris; I25.2 Old myocardial infarction; R73.03 Prediabetes; Z79.01 Long term (current) use of anticoagulants; Z87.01 Personal history of pneumonia (recurrent); Z95.1 Presence of aortocoronary bypass graft; R53.1 Weakness; Z20.822 Contact with and (suspected) exposure to COVID-19; Z99.81 Dependence on supplemental oxygen; E86.9 Volume depletion, unspecified; I48.0 Paroxysmal atrial fibrillation; Z68.29 Body mass index [BMI] 29.0-29.9, adult; T50.2X5A Adverse effect of carbonic-anhydrase inhibitors, benzothiadiazides and other diuretics, initial encounter; Z95.4 Presence of other heart-valve replacement
CPT/HCPCS: 36415; 71045; 83605; 83735; 84100; 84484; 85025; 85730; 87040; 87086; 93005; 97161; A4663; A6209; G0378; J0456; J0696; J1940; J7040; J7050